=== PATIENT | male | born 1945 | race Caucasian/White ===

== ENCOUNTER 2018-08-26 08:33 | Observation (INO) | payer OTHER ==
[~2018-08-26] VITALS: Ht 180.3 cm; Wt 64.0 kg
[2018-08-26] MEDS ORDERED: ASPIRIN 325 MG TABLET ONE (09:03)
[2018-08-26] MEDS ORDERED: NITROGLYCERIN 1GM/1 INCH PACKET TD ONE (09:03)
[2018-08-26 09:11] LABS: BASOPHILS % (AUTO) 0.8 % (0.0-5.0); EOSINOPHILS % (AUTO) 4.1 % (0.0-8.0); HEMATOCRIT 42.5 % (42-54); LYMPHOCYTES % (AUTO) 9.2 % (21.0-51.0); MEAN CORPUSCULAR HEMOGLOBIN 31.7 pg (27.0-33.0); MEAN CORPUSCULAR HGB CONC 33.4 g/dL (32.0-36.0); MONOCYTES % (AUTO) 8.5 % (3.0-13.0); NEUTROPHILS % (AUTO) 77.4 % (40.0-77.0); PLATELET COUNT (AUTO) 215 K/uL (130-400); RED BLOOD CELL COUNT(AUTO) 4.48 MIL/uL (4.50-6.20); RED CELL DISTRIBUTION WIDTH 13.8 % (11.0-15.5); WHITE BLOOD COUNT (AUTO) 8.7 K/uL (4.8-10.8)
[2018-08-26 09:17] LABS: CREATININE 1.7 mg/dL (0.5-1.5); POTASSIUM 4.2 mmol/L (3.5-5.1)
[2018-08-26 09:25] LABS: ALBUMIN 3.7 g/dL (3.5-5.0); BILIRUBIN,TOTAL 0.8 mg/dL (0.2-1.0)
[2018-08-26] MEDS ORDERED: NITROGLYCERIN 1GM/1 INCH PACKET TD SCH (10:30)
[2018-08-26] MEDS ORDERED: NITROGLYCERIN 0.4 MG SL TAB SL PRN (10:30)
[2018-08-26] MEDS ORDERED: HYDRALAZINE HCL 20 MG/ML VIAL IV PRN (10:30)
[2018-08-26 12:00] VITALS: BP 155/78
[2018-08-26 12:33] LABS: CREATINE KINASE, TOTAL 51 U/L (21-232); MYOGLOBIN 58 ng/mL (10-92); TROPONIN I < 0.04 ng/mL (0.00-0.06)
[2018-08-26 16:00] VITALS: BP 134/66
--- NOTE | 2018-08-26 18:00 | NUR ---
REFUSING STRESS TEST PATIENT AND AT BEDSIDE ARE REFUSING FOR A STRESS TEST TO BE PERFORMED TOMORROW. EDUCATED PATIENT ON REASON FOR TEST. PATIENT AND REPORT PATIENT HAD A STRESS TEST IN THE PAST AND APPARENTLY PATIENT STARTED "COUGHING UP BLOOD" AFTER THAT STRESS TEST SO THEY DO NOT WANT A STRESS TEST PERFORMED. PATIENT SIGNS REFUSAL TREATMENT FORM AND PLACED IN CHART.
[2018-08-26] MEDS ORDERED: FOLI1TAB61 PO (18:54)
[2018-08-26] MEDS ORDERED: RANO500T2 PO (18:54)
[2018-08-26] MEDS ORDERED: CLOP75TA14 PO (18:54)
[2018-08-26] MEDS ORDERED: ATOR40TA69 PO (18:54)
[2018-08-26] MEDS ORDERED: CHOL200074 PO (18:54)
[2018-08-26] MEDS ORDERED: LISI-617 PO (18:54)
[2018-08-26 19:15] VITALS: BP 132/60
[2018-08-26 19:24] LABS: TROPONIN I 0.04 ng/mL (0.00-0.06)
[2018-08-26] MEDS: METOPROLOL TARTRATE 25 MG TAB PO SCH (20:29)
[2018-08-26] MEDS ORDERED: FAMOTIDINE/PF 20 MG/2 ML VIAL IV SCH (21:00)
[2018-08-27 00:56] VITALS: BP 133/65
[2018-08-27 03:08] LABS: TROPONIN I 0.04 ng/mL (0.00-0.06)
[2018-08-27 05:06] VITALS: BP 153/73
[2018-08-27 07:00] VITALS: BP 148/71
[2018-08-27] MEDS: METOPROLOL TARTRATE 25 MG TAB PO SCH (08:48)
[2018-08-27] MEDS ORDERED: ASPIRIN 81MG TAB.CHEW PO SCH (09:00)
[2018-08-27] MEDS ORDERED: FAMOTIDINE/PF 20 MG/2 ML VIAL IV SCH (09:00)
[2018-08-27] MEDS ORDERED: ASPIRIN 325 MG TABLET PO SCH (09:00)
[2018-08-27] MEDS ORDERED: ENOXAPARIN SODIUM 40 MG/0.4 ML SYRINGE SQ SCH (09:00)
[2018-08-27] MEDS ORDERED: REGADENOSON 0.4 MG/5 ML PF SYG IVP SCH (09:30)
[2018-08-27 11:00] VITALS: BP 120/57
--- NOTE | 2018-08-27 14:25 | NUR ---
RD Notification Patient tolerating Heart Healthy diet with no report of GI distress and PO intake at 100%. Patient LBM 08/26/18. Patient monitored labs: Cr 1.7, GFR 42. RD to continue to monitor. Please notify HERNAN as nutritional concerns arise. Addendum: 08/27/18 at [address] Amended: Links added.
[2018-08-27 16:00] VITALS: BP 142/74
--- NOTE | 2018-08-27 16:00 | NUR ---
CM NOTE MET W PT AND SPOUSE; PT WHX OF MILD DEMENTIA, QUESTIONS ANSWERED BY SPOUSE; WHO WILL PROVIDE TRANSPORT HOME, DOES NOT USE MOBILITY AIDS, DOES NOT DRIVE; NEEDS MINIMAL ASSISTANCE IN ADLS, GOES TO [facility], SPOUSE DECLINED RECOMMENDED STRESS TEST RELATED TO PREVIOUS BAD REACTION; PLAN IS PROBABLY HOME TONIGHT, WILL FOLLOW Addendum: 08/28/18 at 0838 by MARISELA LÓPEZ RN CM Amended: Links added.
[2018-08-27] MEDS ORDERED: METOPROLOL TARTRATE 25 MG TAB PO SCH (21:00)
== END 2018-08-27 17:22 | disposition home or self-care (01) ==
LOC: EDH 08:33 → EDHIP 10:26 → 2AH 11:52
PROVIDERS: ADMIT Internal Medicine; ATTEND Internal Medicine
DX: R07.89 Other chest pain (principal); I12.9 Hypertensive chronic kidney disease with stage 1 through stage 4 chronic kidney disease, or unspecified chronic kidney disease; N18.3 Chronic kidney disease, stage 3 (moderate); I25.119 Atherosclerotic heart disease of native coronary artery with unspecified angina pectoris; E78.5 Hyperlipidemia, unspecified; F03.90 Unspecified dementia, unspecified severity, without behavioral disturbance, psychotic disturbance, mood disturbance, and anxiety; Z79.02 Long term (current) use of antithrombotics/antiplatelets; Z82.49 Family history of ischemic heart disease and other diseases of the circulatory system; Z86.73 Personal history of transient ischemic attack (TIA), and cerebral infarction without residual deficits; Z86.79 Personal history of other diseases of the circulatory system; Z87.891 Personal history of nicotine dependence; Z95.1 Presence of aortocoronary bypass graft
CPT/HCPCS: 36415 ×2; 71046; 80053; 80061; 82550 ×3; 83874 ×3; 83880; 84484 ×4; 85025; 93005 ×3; 93306; 96374; 99291; G0378 ×29; J3490; J1650; J2785

== ENCOUNTER → 2018-12-28 | Outpatient (CLI) | payer OTHER ==
[~2018-12-28] MED LIST: AMIO200T44 PO; ASPI-555 PO; ATOR40TA69 PO; CHOL100046 PO; CHOL200074 PO; DONE10TA8 PO; FAMO20TA8 PO; FOLI1TAB61 PO; FURO20TA6 PO; LISI-617 PO; NITR0.4T50 SL; RIVA15TA PO; RIVA20TA PO
== END | disposition home or self-care (01) ==
LOC: SHCH 10:01
PROVIDERS: ATTEND Internal Medicine Cardiovascular Disease
DX: I08.0 Rheumatic disorders of both mitral and aortic valves (principal); I11.0 Hypertensive heart disease with heart failure; I50.32 Chronic diastolic (congestive) heart failure
CPT/HCPCS: 93306

== ENCOUNTER → 2023-04-24 | Outpatient (CLI) | payer OTHER ==
[~2023-04-24] MED LIST changes: -ASPI-555 PO; +ASPI-556 PO; -LISI-617 PO; +LISI5TAB21 PO
== END | disposition home or self-care (01) ==
LOC: SHCH 08:46
PROVIDERS: ATTEND Internal Medicine Cardiovascular Disease
DX: I65.23 Occlusion and stenosis of bilateral carotid arteries (principal); I25.10 Atherosclerotic heart disease of native coronary artery without angina pectoris
CPT/HCPCS: 93880

== ENCOUNTER → 2024-03-01 | Outpatient (CLI) | payer OTHER ==
--- NOTE | 2024-03-03 12:00 | HMCSR ---
APPROVED REPORT EXAM: Two-dimensional and M-mode echocardiogram with Doppler and color Doppler. INDICATION ICD: 2D Dimensions RVDd3.6 cmLVEF(%)34.2 (>50%)LVED Vol(simp.)112.0 mL IVSd1.6 (0.7-1.1cm)FS(%)16 %LVES Vol(simp.)62.0 mL LVDd4.2 (3.8-5.6cm)Ao Root(2D)4.0 (2.0-3.7cm)LVEF(%, simp.)45 % PWd1.0 (0.7-1.1cm)LVOT diam1.9 (1.8-2.4cm)LA ESV INDEX (BP)22.89 mL/m2 LVDs3.5 (2.5-4.0cm)IVC diam1.6 cm Aortic Valve AoV Vmax2.8 m/Ba Peak GR31.0 mmHgLVOT Vmax0.8 m/s AoV VTI0.7 mAo Mean GR22.8 mmHgLVOT VTI0.21 m KEVON (VMAX)0.8 cm2Al P1/2T672 msAVA (VTI) 0.8 cm2 Mitral Valve MV E Vmax54.2 cm/sDECEL Mnve022 ms MV A Acxl711.2 cm/sP 1/2 T52 ms E/A ratio0.5MVA (PHT)4.2 cm2 MR Max PG134 mmHg TDI E/E' Cwgqpm93.8E/E' Lateral8.7 Pulmonary Valve PV Vmax1.1 m/sPV VTI0.23 mPV Mean GR2 mmHg PV Peak GR4.7 mmHgPI End [employer]. [employer] 1.0 cm/s Tricuspid Valve TR Vmax1.6 m/sRAP (EST) 3 ktHlVQNQ11.4 mmHg TR Peak GR10.4 mmHg Left Ventricle The left ventricle chamber size is normal. Posterior basal thinning and dyskinesis. Inferolateral and mid anterolateral hypokinesis. There is moderate concentric LVH. LVEF is 45% by Graves's method. Gr christy 1 diastolic dysfunction Right Ventricle The right ventricle is normal size. Right ventricular systolic function is mildly reduced. Atria The left atrium size is normal. The right atrium size is normal. 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 Mild aortic regurgitation. AR pressure 1/2 time is 672 ms. Moderate aortic stenosis with calculated aortic valve area is 0.8 cm, but with peak pressure gradient of 31 mmHg and mean pre ssure gradient of 23 mmHg. Dimensionless index is 0.3. Mitral Valve Mitral valve leaflets are mildly sclerotic but open well. Mitral regurgitation is mild. There is no m itral valve stenosis. Tricuspid Valve The tricuspid valve leaflets appear normal. There is trace tricuspid regurgitation. Pulmonic Valve The pulmonic valve leaflets are thin and pliable; valve motion is normal. There is trace pulmonic regan vular regurgitation. Great Vessels Aortic root is mildly dilated, measuring 3.9 cm. The ascending aorta is mildly dilated. The IVC is no rmal in size and collapses >50% with inspiration. Pericardium No pericardial effusion. Conclusion The left atrium size is normal. The left ventricle chamber size is normal. Posterior basal thinning and dyskinesis. Inferolateral and mid anterolateral hypokinesis. There is moderate concentric LVH. LVEF is 45% by Graves's method. 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 Moderate aortic stenosis with calculated aortic valve area is 0.8 cm, but with peak pressure gradien t of 31 mmHg and mean pressure gradient of 23 mmHg. Dimensionless index is 0.3. Mild aortic regurgitation. AR pressure 1/2 time is 672 ms. Mitral regurgitation is mild. Aortic root is mildly dilated, measuring 3.9 cm. No pericardial effusion.
== END | disposition home or self-care (01) ==
LOC: SHCH 14:42
PROVIDERS: ATTEND Internal Medicine Cardiovascular Disease
DX: I08.0 Rheumatic disorders of both mitral and aortic valves (principal); R55 Syncope and collapse
CPT/HCPCS: 93306